=== PATIENT | male | born 1995 | race Caucasian/White ===

== ENCOUNTER 2017-02-05 22:41 | Emergency (ER) | payer BC ==
[~2017-02-05] VITALS: Ht 182.9 cm; Wt 116.4 kg
[2017-02-05 22:44] VITALS: TEMP 37; Ht 182.9 cm; Wt 116.4 kg
[2017-02-05] MEDS ORDERED: ONDANSETRON INJ 2 MG/ML 2 ML VIAL IV STA (23:16)
[2017-02-05 23:19] LABS: BASO % 0.5 %; BASO ABS # 0.05 K/uL (0-0.2); COMPLETE YES; EOS % 2.7 %; HEMATOCRIT 43.6 % (42-52); IG% 0.4 %; LYMPH % 29.7 %; LYMPH ABS # 2.82 K/uL (1.2-3.4); MEAN CELL VOLUME 79.1 fL (80-100); MEAN CORPUSCULAR HEMOGLOBIN 27.9 pg (25-34); MEAN CORPUSCULAR HGB CONC 35.3 g/dl (32-36); MEAN PLATELET VOLUME 9.8 fL (7.4-10.4); NEUT % 59.7 %; PLATELET COUNT 266 K/uL (130-400); RED BLOOD COUNT 5.51 M/uL (4.7-6.1); WHITE BLOOD COUNT 9.49 K/uL (4.8-10.8)
[2017-02-05] MEDS ORDERED: SODIUM CHLORIDE 0.9% 1000ML 1,000 ML IV ONE (23:30)
[2017-02-05] MEDS ORDERED: MoRPHine SULFATE 4 MG/ML 1 ML CARP\\VIAL IV ONE (23:30)
[2017-02-05 23:54] LABS: URINE APPEARANCE CLEAR (CLEAR); URINE BILIRUBIN NEG (NEG); URINE COLOR YELLOW; URINE NITRITE NEG (NEG); UROBILINOGEN NEG (NEG); ZZUR CULT IF INDIC CLEAN CATCH NO
[2017-02-06 00:05] LABS: MANUAL MICROSCOPIC REQUIRED? NO; REVIEW REQ? NO
[2017-02-06 00:05] LABS: POTASSIUM 3.7 mmol/L (3.5-5.1)
[2017-02-06 00:12] LABS: ALB/GLOB RATIO 0.9 (0.9-2); BUN/CREATININE RATIO 17.9 (10-20); CALCIUM 9.3 mg/dl (8.5-10.1); CREATININE 1.1 mg/dl (0.60-1.40)
[2017-02-06] MEDS ORDERED: OPTIRAY 320 IV PRN (00:15)
[2017-02-06] MEDS ORDERED: MoRPHine SULFATE 4 MG/ML 1 ML CARP\\VIAL IV ONE (01:30)
[2017-02-06 02:47] VITALS: BP 131/76; PULSE 68; O2SAT 97
[2017-02-06] MEDS ORDERED: ONDANSETRON HOME PACK 4MG OD TAB PO ONE (03:15)
--- NOTE | 2017-02-06 05:43 | EMERGENCY ROOM VISIT NOTE ---
History First contact with patient: 23:06 Chief Complaint: ABDOMINAL PAIN Stated Complaint: VOMITING, DIZZY, RT SIDE ABDOMINAL PAIN Nursing Triage Summary: c/o right mid abd pain for 1 hr with n/v History of Present Illness The patient is a 21 year old male who presents to the Emergency Room with complaints of right-sided abdominal pain with nausea and vomiting worsening over the past hour. The patient states that he was at a friend's house and began walking home. On his way home he began feeling sick and had several episodes of vomiting. The patient is now complaining of pain in his right- sided abdomen and is concerned about his appendix. He has never had abdominal surgery in the past. He has not had fever or chills. No chest pain or shortness of breath. He has not had similar symptoms in the past and rates his current discomfort a dull, nonradiating, 7/10. Review of Systems More than 10 systems were reviewed and otherwise negative with the exception of history of present illness. Past Medical/Surgical History No chronic medical disease Family History No pertinent family history Social History Smoking Status: Never Smoker Occupation Status: [employer] student Current/Historical Medications No Active Prescriptions or Reported Meds Allergies Coded Allergies: No Known Allergies (Unverified , 02/05/17) Physical Exam Vital Signs Date Time Temp Pulse Resp B/P Pulse Ox O2 Delivery O2 Flow Rate FiO2 02/06/17 02:47 68 18 131/76 97 Room Air 02/06/17 01:50 80 18 145/96 99 Room Air 02/06/17 01:18 70 18 148/75 97 Room Air 02/05/17 23:34 86 18 158/95 99 Room Air 02/05/17 22:44 37.0 82 18 147/113 98 Room Air Pain Rating (0-10): 1.0 Physical Exam VITALS: Vitals are noted on the nurse's note and reviewed by myself. Vital signs stable. GENERAL: Well-developed, well-nourished, male, who is in no acute distress and resting comfortably. Patient is cooperative with the examination. HEAD: Normocephalic atraumatic. HEART: Regular rate and rhythm without murmurs gallops or rubs. LUNGS: Clear to auscultation bilaterally without wheezes, rales or rhonchi. No retractions or accessory muscle use. ABDOMEN: Positive normal bowel sounds x 4. Soft with mild right-sided abdominal tenderness on palpation. No rebound or guarding. MUSCULOSKELETAL: No muscle atrophy, erythema, or edema noted. Full range of motion without joint tenderness in all extremities. Medical Decision & Procedures ER Provider Diagnostic Interpretation: Preliminary Findings Only See Final Report For Complete Findings CT ABDOMEN & PELVIS: No acute intra-abdominal process. Normal caliber appendix. No evidence of bowel obstruction. No hydronephrosis. Scattered colonic diverticula. Small nonspecific mesenteric and retroperitoneal lymph nodes. Mild basilar atelectatic changes. Laboratory Results 02/05/17 23:00 Red Blood Count 5.51, Mean Corpuscular Volume 79.1, Mean Corpuscular Hemoglobin 27.9, Mean Corpuscular Hemoglobin Concent 35.3, Mean Platelet Volume 9.8, Neutrophils (%) (Auto) 59.7, Lymphocytes (%) (Auto) 29.7, Monocytes (%) (Auto) 7.0, Eosinophils (%) (Auto) 2.7, Basophils (%) (Auto) 0.5, Neutrophils # (Auto) 5.66, Lymphocytes # (Auto) 2.82, Monocytes # (Auto) 0.66, Eosinophils # (Auto) 0.26, Basophils # (Auto) 0.05 02/05/17 23:00 Test 02/05/17 22:50 02/05/17 23:00 Urine Color YELLOW Urine Appearance CLEAR (CLEAR) Urine pH 7.0 (4.5-7.5) Urine Specific [place] 1.020 (1.000-1.030) Urine Protein NEG (NEG) Urine Glucose (UA) NEG (NEG) Urine Ketones NEG (NEG) Urine Occult Blood NEG (NEG) Urine Nitrite NEG (NEG) Urine Bilirubin NEG (NEG) Urine Urobilinogen NEG (NEG) Urine Leukocyte Esterase NEG (NEG) White Blood Count 9.49 K/uL (4.8-10.8) Red Blood Count 5.51 M/uL (4.7-6.1) Hemoglobin 15.4 g/dL (14.0-18.0) Hematocrit 43.6 % (42-52) Mean Corpuscular Volume 79.1 fL (80-100) Mean Corpuscular Hemoglobin 27.9 pg (25-34) Mean Corpuscular Hemoglobin Concent 35.3 g/dl (32-36) Platelet Count 266 K/uL (130-400) Mean Platelet Volume 9.8 fL (7.4-10.4) Neutrophils (%) (Auto) 59.7 % Lymphocytes (%) (Auto) 29.7 % Monocytes (%) (Auto) 7.0 % Eosinophils (%) (Auto) 2.7 % Basophils (%) (Auto) 0.5 % Neutrophils # (Auto) 5.66 K/uL (1.4-6.5) Lymphocytes # (Auto) 2.82 K/uL (1.2-3.4) Monocytes # (Auto) 0.66 K/uL (0.11-0.59) Eosinophils # (Auto) 0.26 K/uL (0-0.5) Basophils # (Auto) 0.05 K/uL (0-0.2) RDW Standard Deviation 39.9 fL (36.4-46.3) RDW Coefficient of Variation 14.0 % (11.5-14.5) Immature Granulocyte % (Auto) 0.4 % Immature Granulocyte # (Auto) 0.04 K/uL (0.00-0.02) Anion Gap 13.0 mmol/L (3-11) Est Creatinine Clear Calc Drug Dose 142.3 ml/min Estimated GFR () 112.2 Estimated GFR (Non- 96.8 BUN/Creatinine Ratio 17.9 (10-20) Calcium Level 9.3 mg/dl (8.5-10.1) Total Bilirubin 0.3 mg/dl (0.2-1) Aspartate Amino Transf (AST/SGOT) 19 U/L (15-37) Alanine Aminotransferase (ALT/SGPT) 45 U/L (12-78) Alkaline Phosphatase 68 U/L (45-117) Total Protein 8.4 gm/dl (6.4-8.2) Albumin 4.0 gm/dl (3.4-5.0) Globulin 4.4 gm/dl (2.5-4.0) Albumin/Globulin Ratio 0.9 (0.9-2) Lipase 209 U/L (73-393) Medications Administered Medications (Trade) Dose Ordered Sig/Kamaljit Route Start Time Stop Time Status Last Admin Dose Admin Sodium Chloride (Nss 1000ml) 1,000 ml @ 999 mls/hr Q1H1M ONCE IV 02/05/17 23:30 02/06/17 00:30 DC 3/26/17 23:31 999 MLS/HR Morphine Sulfate (MoRPHine SULFATE INJ) 4 mg NOW ONCE IV 02/05/17 23:30 02/05/17 23:31 DC 02/05/17 23:32 4 MG Ondansetron HCl (Zofran Inj) 4 mg NOW STAT IV 02/05/17 23:16 02/05/17 23:18 DC 02/05/17 23:32 4 MG Morphine Sulfate (MoRPHine SULFATE INJ) 4 mg NOW ONCE IV 02/06/17 01:30 02/06/17 01:31 DC 02/06/17 01:26 4 MG Ondansetron HCl (ZOFRAN ODT 4MG Home Pack) 1 homepack UD ONCE PO 02/06/17 03:15 02/06/17 03:16 DC 02/06/17 03:16 1 HOMEPACK ED Course Physical exam and history were performed. Nursing notes and EMR were reviewed. Patient appears to have reproducible right-sided abdominal pain on palpation with nausea and vomiting. IV access was established and labs were obtained. The patient was hydrated and medicated as above. Because of his symptoms I did elect to perform a CT scan of the abdomen and pelvis. The patient blood work is as above and was reviewed. He does not have a significantly elevated white blood cell count, gross anemia, bandemia, or significant electrolyte imbalance. Lipase and transaminases are nondiagnostic. The patient CT scan does not show evidence of acute abdominal process. He does have some lymph nodes, and his symptoms certainly could represent an early viral infection or food borne process. On reevaluation the patient had significantly improved symptoms. He did not have emesis while under our care. The patient and I had a lengthy discussion regarding his symptoms. His discomfort certainly could be viral or foodborne, but could also represent an evolving process. The patient feels comfortable for discharge home, and this appears reasonable. He will be given a home pack of Zofran and instructions to follow with [facility] on a short interval. The patient was asked to monitor for worsening symptoms and invited back to the ER anytime with any new, worsening, or concerning symptoms. The chart was completed utilizing [employer] Speech Voice Recognition Software. Grammatical errors, random word insertions, pronoun errors, and incomplete sentences are an occasional consequence of this system due to software limitations, ambient noise, and hardware issues. Any formal questions or concerns about the content, text, or information contained within the body of this dictation should be directly addressed to the provider for clarification. . Medical Decision Differential diagnosis: Etiologies such as appendicitis, diverticulitis, PUD, biliary pathology, UTI, pancreatitis, obstruction, mesenteric ischemia, aortic pathology, infections, inflammatory bowel disease, renal colic, as well as others were entertained. Impression Primary Impression: Nausea and vomiting Additional Impression: Abdominal pain, RLQ Departure Information Dispostion Home / Self-Care Condition GOOD Prescriptions No Active Prescriptions or Reported Meds Forms HOME CARE DOCUMENTATION FORM, IMPORTANT VISIT INFORMATION Patient Instructions My [facility] Additional Instructions You were seen and evaluated today on an emergency basis only. This is not a substitute for, or an effort to provide, complete comprehensive medical care. It is not possible to recognize and treat all injuries or illnesses in a single emergency department visit. For this reason it is recommended that you followup with your primary care physician or [facility] in the next 2-3 days for recheck of your condition. Drink plenty of fluids and remain well hydrated. Zofran 1 tablet every 6 hrs as needed for nausea. You are welcome to return to the emergency department anytime with new, worsening, or concerning symptoms. Problem Qualifiers
--- NOTE | 2017-02-06 07:25 | DIAGNOSTIC IMAGING REPORT ---
CT SCAN OF THE ABDOMEN AND PELVIS WITH IV CONTRAST CLINICAL HISTORY: Right lower quadrant abdominal pain. COMPARISON STUDY: No priors. TECHNIQUE: Following the IV administration of 92 cc of Optiray 320, CT scan of the abdomen and pelvis is performed from the lung bases to the proximal femora. Images are reviewed in the axial, sagittal, and coronal planes. IV contrast was administered without complication. Automated dose control exposure was utilized. CT DOSE: 1241.54 mGy.cm FINDINGS: Lung bases: The heart is normal in size and without pericardial effusion. The lung bases are clear noting mild elevation of the right hemidiaphragm and bibasilar atelectasis. Liver: The contrast-enhanced liver is normal in size, contour, and attenuation. There is no intrahepatic biliary ductal dilatation. The hepatic veins and portal veins are patent. Gallbladder: Unremarkable. Spleen: Normal in size and attenuation. Pancreas: Unremarkable. Adrenal glands: Unremarkable. Kidneys: The contrast enhanced kidneys are normal in size and without hydronephrosis. The kidneys enhance symmetrically. Abdominal vasculature: The abdominal aorta is normal in course and caliber. Bowel: The small bowel and colon are normal in course and caliber. The appendix is well-visualized and normal. Peritoneum: There is no intraperitoneal free air or abdominal ascites. There is a small fat-containing umbilical hernia. Lymphadenopathy: None. Pelvic viscera: The bladder, prostate, and seminal vesicles are normal as imaged. Skeletal structures: No lytic or blastic lesions are seen. IMPRESSION: There are no acute infectious or inflammatory findings in the abdomen or pelvis. Electronically signed by: Augustine Boo M.D. 02/06/2017 7:24 AM Dictated Date/Time: 02/06/2017 7:21 AM
== END 2017-02-06 03:24 | disposition home or self-care (01) ==
LOC: C.EDB 22:43 → C.EDA 02-06 03:24
DX: R11.2 Nausea with vomiting, unspecified (principal); R10.32 Left lower quadrant pain

== ENCOUNTER 2017-02-09 13:52 | Emergency (ER) | payer BC ==
[~2017-02-09] VITALS: Ht 182.9 cm; Wt 116.0 kg
[2017-02-09 13:56] VITALS: TEMP 36.5; Ht 182.9 cm; Wt 116.0 kg
[2017-02-09] MEDS ORDERED: SODIUM CHLORIDE 0.9% 1000ML 1,000 ML IV STA (14:26)
[2017-02-09] MEDS ORDERED: ONDANSETRON INJ 2 MG/ML 2 ML VIAL IV STA (14:26)
[2017-02-09] MEDS ORDERED: MoRPHine SULFATE 4 MG/ML 1 ML CARP\\VIAL IV STA (14:26)
[2017-02-09 15:04] LABS: BASO % 0.4 %; BASO ABS # 0.03 K/uL (0-0.2); COMPLETE YES; EOS % 2.7 %; HEMATOCRIT 45.2 % (42-52); IG% 0.3 %; LYMPH % 27.6 %; LYMPH ABS # 2.05 K/uL (1.2-3.4); MEAN CELL VOLUME 79.4 fL (80-100); MEAN CORPUSCULAR HEMOGLOBIN 27.4 pg (25-34); MEAN CORPUSCULAR HGB CONC 34.5 g/dl (32-36); MEAN PLATELET VOLUME 10.1 fL (7.4-10.4); MONO % 6.7 %; NEUT % 62.3 %; PLATELET COUNT 271 K/uL (130-400); RED BLOOD COUNT 5.69 M/uL (4.7-6.1); WHITE BLOOD COUNT 7.42 K/uL (4.8-10.8)
[2017-02-09 15:10] LABS: URINE APPEARANCE CLEAR (CLEAR); URINE BILIRUBIN NEG (NEG); URINE COLOR YELLOW; URINE NITRITE NEG (NEG); URINE SPECIFIC GRAVITY 1.006 (1.000-1.030); UROBILINOGEN NEG (NEG); ZZUR CULT IF INDIC CLEAN CATCH NO
[2017-02-09 15:16] LABS: MANUAL MICROSCOPIC REQUIRED? NO; REVIEW REQ? NO
[2017-02-09 15:21] LABS: BUN/CREATININE RATIO 13.2 (10-20); CALCIUM 9.5 mg/dl (8.5-10.1); POTASSIUM 3.8 mmol/L (3.5-5.1)
[2017-02-09 15:23] LABS: ALB/GLOB RATIO 1.1 (0.9-2)
--- NOTE | 2017-02-09 15:31 | DIAGNOSTIC IMAGING REPORT ---
Right upper quadrant ultrasound GALLBLADDER-ABD LIMITED CLINICAL HISTORY: RUQ pain, vomiting nausea. Vomiting. TECHNIQUE: Ultrasound COMPARISON STUDY: None FINDINGS: Normal gallbladder. Common bile duct 5 mm. Mild fatty infiltration of liver. Poor visibility of the pancreas due to overlying bowel content. Right kidney is negative for hydronephrosis. IMPRESSION: Fatty infiltration of liver. Otherwise negative study. Electronically signed by: Aguila Meléndez M.D. 02/09/2017 3:30 PM Dictated Date/Time: 02/09/2017 3:29 PM
[2017-02-09] MEDS ORDERED: IBUP-1050 PO (15:59)
--- NOTE | 2017-02-09 15:59 | EMERGENCY ROOM VISIT NOTE ---
History First contact with patient: 14:18 Chief Complaint: NAUSEA Stated Complaint: NAUSEA,PAIN,BURNING SENSATION,VOMITING Nursing Triage Summary: pt was seen in the ED recently and told to come back if his abd pain persists or gets worse and pt has continued right sided abd pain History of Present Illness The patient is a 21 year old male who presents to the Emergency Room with complaints of persistent vomiting and abdominal pain. The patient states that he has had vomiting and abdominal pain for the past 4 days. He was seen here Monday morning and told that he had "swollen lymph nodes" in the abdomen. The patient states that he has had persistent pain in his right side. He describes it as a burning pain and rates it an 8/10. He has also had vomiting anytime he eats anything. He states that Zofran has not relieved the vomiting. He states the pain has been worsening and he has had difficulty sleeping. He has a scheduled appointment with [facility] tomorrow. He denies any changes in bowel movements. He denies any fevers/chills or urinary symptoms. Review of Systems A complete 10-point Review of Systems was discussed with the patient, with pertinent positives and negatives listed in the History of Present Illness. All remaining Review of Systems questions can be considered negative unless otherwise specified. Social History Smoking Status: Never Smoker Occupation Status: [email or web address] student Current/Historical Medications Scheduled Ibuprofen (Advil), 200-600 MG PO Q4H Omeprazole (Prilosec), 40 MG PO DAILY Allergies Coded Allergies: No Known Allergies (Unverified , 02/09/17) Physical Exam Vital Signs Date Time Temp Pulse Resp B/P Pulse Ox O2 Delivery O2 Flow Rate FiO2 02/09/17 16:20 59 16 145/67 99 02/09/17 13:56 36.5 82 18 170/115 98 Physical Exam VITALS: Vitals are noted on the nurse's note and reviewed by myself. Vital signs stable. GENERAL: This is a 21-year-old male, in no acute distress, nondiaphoretic, well- developed well-nourished. SKIN: Capillary reflex less than 2 seconds. HEENT: Normocephalic. PERRLA. EOMI. Nares patent. Mucous membranes moist. Neck is supple without nuchal rigidity. HEART: Regular rate and rhythm without murmurs gallops or rubs. LUNGS: Clear to auscultation bilaterally without wheezes, rales or rhonchi. ABDOMEN: Positive bowel sounds x 4. Soft, mild tenderness to palpation of the right upper quadrant. Negative Wu sign. No guarding or rebound tenderness. NEURO: Patient was alert and oriented to person place and time. Medical Decision & Procedures ER Provider Diagnostic Interpretation: Right upper quadrant ultrasound GALLBLADDER-ABD LIMITED CLINICAL HISTORY: RUQ pain, vomiting nausea. Vomiting. TECHNIQUE: Ultrasound COMPARISON STUDY: None FINDINGS: Normal gallbladder. Common bile duct 5 mm. Mild fatty infiltration of liver. Poor visibility of the pancreas due to overlying bowel content. Right kidney is negative for hydronephrosis. IMPRESSION: Fatty infiltration of liver. Otherwise negative study. Laboratory Results 02/09/17 14:40 Red Blood Count 5.69, Mean Corpuscular Volume 79.4, Mean Corpuscular Hemoglobin 27.4, Mean Corpuscular Hemoglobin Concent 34.5, Mean Platelet Volume 10.1, Neutrophils (%) (Auto) 62.3, Lymphocytes (%) (Auto) 27.6, Monocytes (%) (Auto) 6.7, Eosinophils (%) (Auto) 2.7, Basophils (%) (Auto) 0.4, Neutrophils # (Auto) 4.62, Lymphocytes # (Auto) 2.05, Monocytes # (Auto) 0.50, Eosinophils # (Auto) 0.20, Basophils # (Auto) 0.03 02/09/17 14:40 Test 02/09/17 14:30 02/09/17 14:40 Urine Color YELLOW Urine Appearance CLEAR (CLEAR) Urine pH 6.0 (4.5-7.5) Urine Specific [place] 1.006 (1.000-1.030) Urine Protein NEG (NEG) Urine Glucose (UA) NEG (NEG) Urine Ketones NEG (NEG) Urine Occult Blood NEG (NEG) Urine Nitrite NEG (NEG) Urine Bilirubin NEG (NEG) Urine Urobilinogen NEG (NEG) Urine Leukocyte Esterase NEG (NEG) White Blood Count 7.42 K/uL (4.8-10.8) Red Blood Count 5.69 M/uL (4.7-6.1) Hemoglobin 15.6 g/dL (14.0-18.0) Hematocrit 45.2 % (42-52) Mean Corpuscular Volume 79.4 fL (80-100) Mean Corpuscular Hemoglobin 27.4 pg (25-34) Mean Corpuscular Hemoglobin Concent 34.5 g/dl (32-36) Platelet Count 271 K/uL (130-400) Mean Platelet Volume 10.1 fL (7.4-10.4) Neutrophils (%) (Auto) 62.3 % Lymphocytes (%) (Auto) 27.6 % Monocytes (%) (Auto) 6.7 % Eosinophils (%) (Auto) 2.7 % Basophils (%) (Auto) 0.4 % Neutrophils # (Auto) 4.62 K/uL (1.4-6.5) Lymphocytes # (Auto) 2.05 K/uL (1.2-3.4) Monocytes # (Auto) 0.50 K/uL (0.11-0.59) Eosinophils # (Auto) 0.20 K/uL (0-0.5) Basophils # (Auto) 0.03 K/uL (0-0.2) RDW Standard Deviation 39.8 fL (36.4-46.3) RDW Coefficient of Variation 13.9 % (11.5-14.5) Immature Granulocyte % (Auto) 0.3 % Immature Granulocyte # (Auto) 0.02 K/uL (0.00-0.02) Anion Gap 7.0 mmol/L (3-11) Est Creatinine Clear Calc Drug Dose 156.2 ml/min Estimated GFR () 125.9 Estimated GFR (Non- 108.6 BUN/Creatinine Ratio 13.2 (10-20) Calcium Level 9.5 mg/dl (8.5-10.1) Total Bilirubin 0.3 mg/dl (0.2-1) Aspartate Amino Transf (AST/SGOT) 22 U/L (15-37) Alanine Aminotransferase (ALT/SGPT) 41 U/L (12-78) Alkaline Phosphatase 68 U/L (45-117) Total Protein 8.5 gm/dl (6.4-8.2) Albumin 4.4 gm/dl (3.4-5.0) Globulin 4.1 gm/dl (2.5-4.0) Albumin/Globulin Ratio 1.1 (0.9-2) Lipase 182 U/L (73-393) Medications Administered Medications (Trade) Dose Ordered Sig/Kamaljit Route Start Time Stop Time Status Last Admin Dose Admin Sodium Chloride (Nss 1000ml) 1,000 ml @ 999 mls/hr Q1H1M STAT IV 02/09/17 14:26 02/09/17 15:26 DC 02/09/17 14:57 999 MLS/HR Morphine Sulfate (MoRPHine SULFATE INJ) 4 mg NOW STAT IV 02/09/17 14:26 02/09/17 14:28 DC 02/09/17 14:57 4 MG Ondansetron HCl (Zofran Inj) 4 mg NOW STAT IV 02/09/17 14:26 02/09/17 14:28 DC 02/09/17 14:57 4 MG Medical Decision Differential diagnosis includes cholecystitis, pancreatitis, acute hepatitis, small bowel obstruction, gastroenteritis, colitis, retrocecal appendicitis, among others. The patient was evaluated as above. Labs were drawn and IV access was obtained. Imaging studies were performed and read by radiology as above. The patient was medicated with 1 L normal saline solution, 4 mg morphine IV and 4 mg Zofran IV. The patient was reassessed multiple times during their stay in the emergency department and remained in stable condition. The patient is a 21-year-old male who presents today complaining of right-sided abdominal pain with vomiting. Previous records were reviewed. The patient had a CT scan performed 4 days ago which was unremarkable. Labs today were unchanged from previous. There was no leukocytosis, anemia or concerning electrolyte abnormalities. Kidney and liver functions were within normal limits. Urinalysis was not suggestive of infection. Lipase was not elevated. Right upper quadrant ultrasound was performed and read by radiology with no acute findings. The patient has an appointment with [facility] tomorrow and was encouraged to keep this for follow-up. He may need to follow- up with a engineering design supervisor and was provided with the contact information for a local GI provider. The patient is to return for any worsening or new/ concerning symptoms. Based on the patient's presentation, lab results, and imaging studies, I feel the patient is stable for outpatient treatment. The patient's case was reviewed with Dr. Cohn, ED attending physician, who agreed with my assessment and treatment plan. Discharge instructions were reviewed with the patient. The patient verbalized understanding of my assessment and treatment plan and was discharged home in good condition. Impression Primary Impression: Abdominal pain with vomiting Departure Information Dispostion Home / Self-Care Condition GOOD Prescriptions Omeprazole (PRILOSEC) 40 Mg Cap 40 MG PO DAILY for 10 Days, #10 CAP Prov: Randi Lawton ., RENE 02/09/17 Referrals Files, Kevin Aleman (PCP) Patient Instructions My [facility] Additional Instructions You have been treated in the Emergency Department your Abdominal Pain. Laboratory results and imaging studies have ruled out any emergent causes for your abdominal pain which would warrant admission or surgery. Continue Zofran as prescribed. You should decrease alcohol consumption. For pain control, you can use the following [id number] medicines (if >12 yo): - Regular strength (325mg/tab) Tylenol (acetaminophen) 2 tabs every 4-6 hours as needed. Do not exceed 12 tablets in a 24 hour period. Avoid taking more than 4 grams (4000 mg) of Tylenol per day. This includes any other sources of acetaminophen you may take on a regular basis. - Regular strength (200 mg/tab) Advil (ibuprofen) 1-2 tabs every 4-6 hours as needed. Do not exceed a dose of 3200 mg per day. Drink plenty of water and stay well hydrated. Follow-up with [facility] as scheduled. He may also follow-up with a engineering design supervisor for further evaluation of your abdominal pain. Return to the emergency department if your symptoms persist despite treatment plan outlined above or if the following symptoms occur: increased fevers, chills , worsening nausea/vomiting, blood in your stool or urine.
[2017-02-09] MEDS ORDERED: OMEP40CA41 PO (16:03)
[2017-02-09 16:20] VITALS: BP 145/67; PULSE 59; O2SAT 99
== END 2017-02-09 16:22 | disposition home or self-care (01) ==
LOC: C.EDB 13:54 → C.EDC 16:22
DX: R10.9 Unspecified abdominal pain (principal); R11.10 Vomiting, unspecified

== ENCOUNTER → 2017-02-23 | Outpatient (CLI) | payer BC ==
[~2017-02-23] MED LIST: IBUP-1050 PO; SINCALIDE INJ 2.3 MCG in SODIUM CHLORIDE 0.9% 100ML 100 ML IV ONE
--- NOTE | 2017-02-23 10:34 | DIAGNOSTIC IMAGING REPORT ---
NUCLEAR MEDICINE HEPATOBILIARY SCAN WITH EJECTION FRACTION HISTORY: Right upper quadrant abdominal pain. COMPARISON: Abdominal ultrasound 02/09/2017. TECHNIQUE: Immediately following the intravenous administration of 5 mCi Tc-99m Choletec, dynamic anterior abdominal imaging pre/post 2.3 mcg of Kinevac was performed. FINDINGS: Uniform hepatic tracer accumulation is shown. Prompt intrahepatic biliary excretion is seen. The gallbladder, common bile duct, and small bowel are all visualized by 30 minutes. This appearance represents the normal sequence of biliary excretion. The gall bladder ejection fraction following administration of Kinevac was 99% (normal >35%). IMPRESSION: 1. No evidence for cystic duct obstruction. 2. Gallbladder ejection fraction calculated to be 99 %. Electronically signed by: Alon Sierra M.D. 02/23/2017 10:32 AM Dictated Date/Time: 02/23/2017 10:31 AM
== END | disposition home or self-care (01) ==
LOC: C.NUCL 07:27
PROVIDERS: ATTEND Physician Assistant Medical
DX: R10.11 Right upper quadrant pain (principal)